=== PATIENT | male | born 1950 | race Caucasian/White ===

== ENCOUNTER 2017-11-02 16:34 | Emergency (ER) | payer MEDICARE ==
[2017-11-02 16:35] VITALS: BMI 23.7
[2017-11-02 16:39] VITALS: BP 133/90; PULSE 64; RESP 14; TEMP 97.3; O2SAT 97
[2017-11-02] MEDS ORDERED: Sodium Chloride 0.9% 1,000 ML IV STA (18:00)
[2017-11-02 18:28] LABS: BASO % 0.5 % (0.0-2.0); EOS % 0.5 % (0.0-4.0); HEMATOCRIT 42.7 % (35.0-51.0); LYMPH # 1.5 K/uL (1.0-4.3); MEAN CELL VOLUME 90.7 fl (80.0-94.0); MEAN CORPUSCULAR HGB CONC 33.1 g/dL (33.0-37.0); MEAN PLATELET VOLUME 7.7 fl (7.2-11.7); MONO # 0.5 K/uL (0.0-0.8); MONO % 7.5 % (0.0-10.0); NEUT # 5.2 K/uL (1.8-7.0); NEUT % 71.5 % (50.0-75.0); NRBC % 0.1 % (0.0-0.0); RED CELL DISTRIBUTION WIDTH 13.8 % (11.5-14.5); WHITE BLOOD COUNT 7.3 K/uL (4.8-10.8)
[2017-11-02 18:36] LABS: RBC URINE 1 /hpf (0-3); URINE BACTERIA FEW (<OCC); URINE BILIRUBIN NEGATIVE (NEGATIVE); URINE BLOOD NEGATIVE (NEGATIVE); URINE COLOR YELLOW (YELLOW); URINE GLUCOSE (UA) NEG (Normal); URINE KETONE NEGATIVE (NEGATIVE); URINE LEUKOCYTE ESTERASE NEG Leu/uL (Negative); URINE PROTEIN NEGATIVE (NEGATIVE); WBC URINE 1 /hpf (0-5)
[2017-11-02 18:37] LABS: ALB/GLOB RATIO 1.2 (1.0-2.1); ALKALINE PHOSPHATASE 62 U/L (38-126); ALT/SGPT 54 U/L (21-72); AST/SGOT 28 U/L (17-59); BILIRUBIN,TOTAL 0.5 mg/dl (0.2-1.3); BLOOD UREA NITROGEN 20 mg/dl (9-20); CALCIUM 9.8 mg/dL (8.4-10.2); CARBON DIOXIDE 31 mmol/L (22-30); CHLORIDE 102 mmol/L (98-107); GFR AFRICAN-AMERICAN > 60; GLUCOSE,RANDOM 83 mg/dL (75-110); POTASSIUM 4.5 MMOL/L (3.6-5.0); SODIUM 141 mmol/l (132-148); TOTAL PROTEIN 7.7 G/DL (6.3-8.2)
--- NOTE | 2017-11-02 19:10 | ED PDOC ---
HPI: General Adult Time Seen by Provider: 11/02/17 17:10 Chief Complaint (Nursing): Abdominal Pain History Per: Patient Additional Complaint(s): Pt. states this morning he developed RLQ abdominal pain. Reports pain is constant. States that he was seen by his PMD, Dr. Franco, who prescribed him 3 medications but he does not remember the name of the meds. He was instructed to come to ED if pain became worse. States while at home and after trying the meds pain became worse prompting ED visit. Denies fever, N/V/D, previous abdominal surgeries, chest pain, abdominal pain. Past Medical History Reviewed: Historical Data, Nursing Documentation, Vital Signs Vital Signs: Last Vital Signs Temp 97.3 F L 11/02/17 16:36 Pulse 64 11/02/17 16:36 Resp 14 11/02/17 16:36 BP 133/90 11/02/17 16:36 Pulse Ox 97 11/02/17 19:11 - Medical History PMH: HTN, Hypercholesterolemia Denies: HIV, Chronic Kidney Disease - Family History Family History: States: Unknown Family Hx - Immunization History Hx Tetanus Toxoid Vaccination: No Hx Influenza Vaccination: No Hx Pneumococcal Vaccination: No - Home Medications Home Medications: Ambulatory Orders Medication Instructions Recorded Acetaminophen [Tylenol 325mg tab] 650 mg PO Q6 PRN #0 tab 03/09/16 Amlodipine Besylate [Norvasc] 10 mg PO DAILY #0 tablet 03/09/16 - Allergies Allergies/Adverse Reactions: Allergies Allergy/AdvReac Type Severity Reaction Status Date / Time No Known Allergies Allergy Verified 11/02/17 16:36 Review of Systems ROS Statement: Except As Marked, All Systems Reviewed And Found Negative Gastrointestinal: Positive for: Abdominal Pain Physical Exam - Reviewed Nursing Documentation Reviewed: Yes Vital Signs Reviewed: Yes - Physical Exam Appears: Positive for: Well, Non-toxic, No Acute Distress Head Exam: Positive for: ATRAUMATIC, NORMAL INSPECTION, NORMOCEPHALIC Skin: Positive for: Normal Color, Warm. Negative for: Rash Eye Exam: Positive for: EOMI, Normal appearance, PERRL ENT: Positive for: Normal ENT Inspection Neck: Positive for: Normal, Painless ROM Cardiovascular/Chest: Positive for: Regular Rate, Rhythm Respiratory: Positive for: CNT, Normal Breath Sounds Gastrointestinal/Abdominal: Positive for: Normal Exam, Bowel Sounds, Soft, Tenderness (minimal RLQ tenderness), Other (negative psoas and rovsing's sign). Negative for: Rebound Back: Positive for: Normal Inspection. Negative for: L CVA Tenderness, R CVA Tenderness Extremity: Positive for: Normal ROM Neurologic/Psych: Positive for: Alert, Oriented - Laboratory Results Result Diagrams: 11/02/17 18:23 11/02/17 18:23 - ECG O2 Sat by Pulse Oximetry: 97 - Progress ED Course And Treament: Labs ordered. CT abd/pelvis w/ IV contrast ordered. Disposition - Clinical Impression Clinical Impression: Abdominal pain - Patient ED Disposition Is Patient to be Admitted: Transfer of Care (Signed out to Duane TREVINO pending CT results and final disposition.) - Disposition Disposition Time: 20:00 Condition: STABLE Forms: [facility] (Czech)
[2017-11-02] MEDS ORDERED: Iohexol 300 100 ML IJ ONE (19:22)
--- NOTE | 2017-11-02 20:17 | CT ---
EXAM: CT Abdomen and Pelvis With Intravenous Contrast CLINICAL HISTORY: 67 years old, male; Pain; Abdominal pain; Acute; Additional info: Rlq abdominal pain TECHNIQUE: Axial computed tomography images of the abdomen and pelvis with intravenous contrast. All CT scans at this facility use one or more dose reduction techniques, viz.: automated exposure control; ma/kV adjustment per patient size (including targeted exams where dose is matched to indication; i.e. head); or iterative reconstruction technique. Coronal and sagittal reformatted images were created and reviewed. CONTRAST: 95 mL of omnipaque 300 administered intravenously. COMPARISON: No relevant prior studies available. FINDINGS: Lower thorax: Borderline cardiomegaly. ABDOMEN: Liver: Fatty infiltration. Gallbladder and bile ducts: No calcified stones. No ductal dilation. Pancreas: No ductal dilation. No mass. Spleen: No splenomegaly. Adrenals: No mass. Kidneys and ureters: Calculus within RIGHT kidney. No hydronephrosis. Stomach and bowel: No definite mural thickening. No obstruction. Appendix: Normal caliber. No inflammation. PELVIS: Bladder: See below. Reproductive: Enlarged prostate gland with indentation of bladder. ABDOMEN and PELVIS: Intraperitoneal space: No significant fluid collection. No free air. Bones/joints: Bone islands. Early degenerative changes of spine. No acute fracture. Soft tissues: Unremarkable. Vasculature: Unremarkable. No aneurysm. Lymph nodes: No pathologically enlarged lymph nodes. IMPRESSION: 1. No definite CT evidence of appendicitis. 2. Prostate enlargement. Followup as clinically warranted. 3. Incidental/non-acute findings are described above.
--- NOTE | 2017-11-02 21:12 | ED PDOC ---
- Laboratory Results Result Diagrams: 11/02/17 18:23 11/02/17 18:23 - ECG O2 Sat by Pulse Oximetry: 97 - Progress ED Course And Treament: Endorsed pending CT scan. CT scan with prostate enlargement. Labs normal. Medical Decision Making Medical Decision Making: Unable to reach Dr. Franco. Disposition - Clinical Impression Clinical Impression: Abdominal pain - POA Present On Arrival: None - Disposition Disposition: Routine/Home Disposition Time: 21:12 Condition: GOOD Instructions: Acute Abdominal Pain (ED) Forms: [employer] (Syriac)
== END 2017-11-02 22:32 | disposition home or self-care (01) ==
LOC: H.ER 16:34
DX: R10.31 Right lower quadrant pain (principal); E78.00 Pure hypercholesterolemia, unspecified; I10 Essential (primary) hypertension; N40.1 Benign prostatic hyperplasia with lower urinary tract symptoms
CPT/HCPCS: 74177; 80053; 81003; 85025; 99283; J7040; Q9967

== ENCOUNTER 2018-11-26 13:54 | Emergency (ER) | payer MEDICARE ==
[2018-11-26 13:54] VITALS: BMI 23.7
[2018-11-26 14:06] VITALS: RESP 18
--- NOTE | 2018-11-26 14:30 | ED PDOC ---
HPI: CCC, URI, Sore Throat Time Seen by Provider: 11/26/18 14:13 Chief Complaint (Nursing): Cough, Cold, Congestion Chief Complaint (Provider): Cough, Cold, Congestion History Per: Patient History/Exam Limitations: no limitations Onset/Duration Of Symptoms: Days (x3) Current Symptoms Are (Timing): Still Present Additional Complaint(s): 68 year old male with pmHx of HTN, presents to ED with a complaint of cough with pleuritic pain ongoing for 3 days. He denies any fever, chills, shortness of breath, nausea, vomiting, back pain, headache, sore throat, phlegm production, or rash. PCP: Dr. Jose J Franco Past Medical History Reviewed: Historical Data, Nursing Documentation, Vital Signs Vital Signs: Last Vital Signs Temp 97 F L 11/26/18 14:05 Pulse 85 11/26/18 14:10 Resp 18 11/26/18 14:05 BP 116/82 11/26/18 14:05 Pulse Ox 98 11/26/18 14:05 - Medical History PMH: HTN, Hypercholesterolemia Denies: HIV, Chronic Kidney Disease - Family History Family History: States: Unknown Family Hx - Immunization History Hx Tetanus Toxoid Vaccination: No Hx Influenza Vaccination: No Hx Pneumococcal Vaccination: No - Home Medications Home Medications: Ambulatory Orders Medication Instructions Recorded Acetaminophen [Tylenol 325mg tab] 650 mg PO Q6 PRN #0 tab 03/09/16 Amlodipine Besylate [Norvasc] 10 mg PO DAILY #0 tablet 03/09/16 Promethazine DM [Phenergan DM 10 ml PO Q8H PRN #120 ml 11/26/18 Syrup] - Allergies Allergies/Adverse Reactions: Allergies Allergy/AdvReac Type Severity Reaction Status Date / Time No Known Allergies Allergy Verified 11/02/17 16:36 Review of Systems ROS Statement: Except As Marked, All Systems Reviewed And Found Negative Constitutional: Negative for: Fever, Chills ENT: Negative for: Throat Pain Respiratory: Positive for: Cough, Pleuritic Pain. Negative for: Shortness of Breath, Sputum Gastrointestinal: Negative for: Nausea, Vomiting Musculoskeletal: Negative for: Back Pain Skin: Negative for: Rash Neurological: Negative for: Headache Physical Exam - Reviewed Nursing Documentation Reviewed: Yes Vital Signs Reviewed: Yes - Physical Exam Appears: Positive for: No Acute Distress Head Exam: Positive for: ATRAUMATIC, NORMAL INSPECTION, NORMOCEPHALIC Skin: Positive for: Normal Color. Negative for: Rash Eye Exam: Positive for: Normal appearance ENT: Positive for: Normal ENT Inspection. Negative for: Pharyngeal Erythema, Tonsillar Swelling Neck: Positive for: Normal, Painless ROM, Supple Cardiovascular/Chest: Positive for: Regular Rate, Rhythm, Chest Non Tender Respiratory: Positive for: Normal Breath Sounds. Negative for: Wheezing, Respiratory Distress Gastrointestinal/Abdominal: Positive for: Normal Exam, Soft. Negative for: Tenderness Back: Positive for: Normal Inspection Extremity: Positive for: Normal ROM (upper/lower) Neurologic/Psych: Positive for: Alert, Oriented. Negative for: Motor/Sensory Deficits - ECG ECG: Positive for: Viewed By Ak ECG Rhythm: Positive for: Normal QRS O2 Sat by Pulse Oximetry: 98 (RA) Pulse Ox Interpretation: Normal - Radiology X-Ray: Viewed By Ak X-Ray Interpretation: No Acute Disease Medical Decision Making Medical Decision Making: Time: 1422 Initial Plan: * EKG * CXR Time: 1430 --EKG: NSR at 73 BMP. Scribe Attestation: Documented by Elizabeth Hendrickson, acting as a scribe for Zoila Baird MD. Provider Scribe Attestation: All medical record entries made by the Scribe were at my direction and personally dictated by me. I have reviewed the chart and agree that the record accurately reflects my personal performance of the history, physical exam, medical decision making, and the department course for this patient. I have also personally directed, reviewed, and agree with the discharge instructions and disposition. Disposition - Clinical Impression Clinical Impression: Chest pain - Patient ED Disposition Is Patient to be Admitted: No Doctor Will See Patient In The: Office Counseled Patient/Family Regarding: Diagnosis, Need For Followup, Rx Given - Disposition Referrals: Jose J Franco [Staff Provider] - Disposition: Routine/Home Disposition Time: 15:16 Condition: STABLE Prescriptions: Promethazine DM [Phenergan DM Syrup] 10 ml PO Q8H PRN #120 ml PRN Reason: Cough Instructions: Chest Pain That Is Not Caused by the Heart (DC) Forms: [facility] (Belarusian) - POA Present On Arrival: None
--- NOTE | 2018-11-26 16:09 | RAD ---
Date of service: 11/26/2018 HISTORY: cp with cough COMPARISON: Comparison chest dated 01/14/2017 TECHNIQUE: Chest PA and lateral FINDINGS: LUNGS: There appears to be some minor bibasilar atelectasis and or scarring changes. Mild biapical pleural thickening present left greater than right PLEURA: No significant pleural effusion identified. No pneumothorax apparent. CARDIOVASCULAR: No significant aortic atherosclerotic calcification present. Normal cardiac size. No pulmonary vascular congestion. OSSEOUS STRUCTURES: No significant abnormalities. VISUALIZED UPPER ABDOMEN: Normal. OTHER FINDINGS: None. IMPRESSION: There appears to be some minor bibasilar atelectasis and or scarring changes. Mild biapical pleural thickening present left greater than right the
[2018-11-26 16:20] VITALS: BP 114/78; PULSE 80; TEMP 98.2; O2SAT 99
--- NOTE | 2018-11-28 09:08 | CARD ---
APPROVED REPORT Date of service: 11/26/2018 EKG Measurement Heart [id number] <Conclusion> Normal sinus rhythm Normal ECG
== END 2018-11-26 16:30 | disposition home or self-care (01) ==
LOC: H.ER 13:54
DX: R07.89 Other chest pain (principal)

== ENCOUNTER 2018-12-15 08:08 | Emergency (ER) | payer MEDICARE ==
[2018-12-15 08:08] VITALS: BMI 23.7
[2018-12-15 08:12] VITALS: TEMP 97.5
--- NOTE | 2018-12-15 09:18 | ED PDOC ---
HPI: Back Time Seen by Provider: 12/15/18 08:23 Chief Complaint (Nursing): Back Pain Chief Complaint (Provider): right flank pain History Per: Patient History/Exam Limitations: no limitations Onset/Duration Of Symptoms: Hrs (04:00) Current Symptoms Are (Timing): Still Present Additional Complaint(s): Mary Edward is a 68 year old male, with a past medical history of HTN and psoriasis, who presents to the emergency department complaining of a constant severe right flank pain since 04:00. Patient states pain is not improving and does not radiate. 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 He denies any fever, chills, chest pain, shortness of breath, back pain, urinary symptoms or recent injuries. No further medical complaints. PMD: Jose J Franco Past Medical History Reviewed: Historical Data, Nursing Documentation, Vital Signs Vital Signs: Last Vital Signs Temp 97.5 F L 12/15/18 08:11 Pulse 65 12/15/18 08:11 Resp 18 12/15/18 08:11 BP 125/81 12/15/18 08:11 Pulse Ox 99 12/15/18 08:11 - Medical History PMH: HTN, Hypercholesterolemia Denies: HIV, Chronic Kidney Disease Other PMH: psoriasis - Surgical History Surgical History: No Surg Hx - Family History Family History: States: Unknown Family Hx - Social History Current smoker - smoking cessation education provided: No Alcohol: None Drugs: Denies - Immunization History Hx Tetanus Toxoid Vaccination: No Hx Influenza Vaccination: No Hx Pneumococcal Vaccination: No - Home Medications Home Medications: Ambulatory Orders Medication Instructions Recorded Ciprofloxacin HCl [Cipro] 500 mg PO BID #14 tablet 12/15/18 Ketorolac Tromethamine [Toradol] 10 mg PO Q6 PRN #20 tab 12/15/18 amLODIPine [Norvasc] 10 mg PO DAILY 12/15/18 - Allergies Allergies/Adverse Reactions: Allergies Allergy/AdvReac Type Severity Reaction Status Date / Time No Known Allergies Allergy Verified 11/02/17 16:36 Review of Systems ROS Statement: Except As Marked, All Systems Reviewed And Found Negative Constitutional: Negative for: Fever, Chills Cardiovascular: Negative for: Chest Pain Respiratory: Negative for: Shortness of Breath Genitourinary Male: Negative for: Dysuria, Frequency, Incontinence, Hematuria Musculoskeletal: Positive for: Other (right flank pain). Negative for: Back Pain Physical Exam - Reviewed Nursing Documentation Reviewed: Yes Vital Signs Reviewed: Yes - Physical Exam Appears: Positive for: Uncomfortable (restless) Head Exam: Positive for: ATRAUMATIC, NORMAL INSPECTION, NORMOCEPHALIC Skin: Positive for: Normal Color, Warm, Dry Eye Exam: Positive for: Normal appearance, EOMI, PERRL Neck: Positive for: Normal, Painless ROM, Supple Cardiovascular/Chest: Positive for: Regular Rate, Rhythm, Other (psoriatic lesions on trunk). Negative for: Murmur Respiratory: Positive for: Normal Breath Sounds. Negative for: Respiratory Distress Gastrointestinal/Abdominal: Positive for: Normal Exam, Soft. Negative for: Tenderness Back: Positive for: Other (Right mid back tenderness on palpation). Negative for: L CVA Tenderness, R CVA Tenderness, Vertebral Tenderness Extremity: Positive for: Normal ROM (upper and lower extremities). Negative for: Deformity, Swelling Neurologic/Psych: Positive for: Alert, Oriented. Negative for: Motor/Sensory Deficits - Laboratory Results Result Diagrams: 12/15/18 08:57 12/15/18 08:57 - ECG O2 Sat by Pulse Oximetry: 99 (RA) Pulse Ox Interpretation: Normal - Progress Re-evaluation Time: 13:29 Condition: Re-examined, Improved Medical Decision Making Medical Decision Making: Time: 08:23 Initial Impression: Right sided flank pain. Differential diagnosis includes musculoskeletal pain and renal colic Initial Plan: --Abdomen & Pelvis w/o PO or IV cont [CT] --BMP --Drug screen, urine --CBC w/ differential --Toradol 30 mg IVP --Urinalysis --Reevaluation 09:59 Abdomen/Pelvis CT FINDINGS: LOWER THORAX: Unremarkable. LIVER: Unremarkable. No gross lesion or ductal dilatation. GALLBLADDER AND BILE DUCTS: Unremarkable. PANCREAS: Unremarkable. No gross lesion or ductal dilatation. SPLEEN: Unremarkable. ADRENALS: Unremarkable. No mass. KIDNEYS AND URETERS: Obstructive 6 mm proximal right ureteral calculus causing mild hydroureteronephrosis. Punctate left upper pole nonobstructive calculus.. No solid mass. VASCULATURE: Unremarkable. No aortic aneurysm. No aortic atherosclerotic calcification or mural plaque present. BOWEL: Unremarkable. No obstruction. No gross mural thickening. APPENDIX: No findings to suggest acute appendicitis. PERITONEUM: Unremarkable. No free fluid. No free air. LYMPH NODES: Unremarkable. No enlarged lymph nodes. BLADDER: Unremarkable. REPRODUCTIVE: Enlarged, lobulated prostate and seminal vesicles BONES: Spinal degenerative changes. Few scattered sclerotic foci in the pelvis, unchanged. No acute fracture. OTHER FINDINGS: None. IMPRESSION: Obstructive 6 mm proximal right ureteral calculus causing mild hydroureteronephrosis. Punctate left upper pole nonobstructive calculus. Enlarged, lobular prostate and seminal vesicles. Further evaluation is recommended, including serum PSA levels. Additional findings as above. Scribe Attestation: Documented by Masood Ogden, acting as a scribe for Ramakrishna Berumen MD Provider Scribe Attestation: All medical record entries made by the Scribe were at my direction and personally dictated by me. I have reviewed the chart and agree that the record accurately reflects my personal performance of the history, physical exam, medical decision making, and the department course for this patient. I have also personally directed, reviewed, and agree with the discharge instructions and disposition. Disposition - Clinical Impression Clinical Impression: Right ureteral stone, Prostate enlargement - Patient ED Disposition Is Patient to be Admitted: No Doctor Will See Patient In The: Office Counseled Patient/Family Regarding: Studies Performed, Diagnosis, Need For Followup - Disposition Referrals: Jose J Franco [Family Provider] - Puma Skinner Jr., MD [Staff Provider] - Disposition Time: 13:29 Condition: GOOD Additional Instructions: MARY EDWARD, thank you for letting us take care of you today. Your provider was Ramakrishna Berumen MD and you were treated for BACK PAIN. The emergency medical care you received today was directed at your acute symptoms. If you were prescribed any medication, please fill it and take as directed. It may take several days for your symptoms to resolve. Return to the Emergency Department if your symptoms worsen, do not improve, or if you have any other problems. Please contact your doctor or call one of the physicians/clinics you have been referred to that are listed on the Patient Visit Information form that is included in your discharge packet. Bring any paperwork you were given at d ischarge with you along with any medications you are taking to your follow up visit. Our treatment cannot replace ongoing medical care by a primary care provider outside of the emergency department. Thank you for allowing the [facility] team to be part of your care today. If you had an X-Ray or CT scan: A Radiologist will review the ED reading if any change in treatment is needed we will contact you. If you had a blood, urine, or wound culture: It will take several days for the results, if any change in treatment is needed we will contact you. If you had an STI test: It will take 48 hours for the results. Please call after 1 week if you have not heard back. Prescriptions: Ciprofloxacin HCl [Cipro] 500 mg PO BID #14 tablet Ketorolac Tromethamine [Toradol] 10 mg PO Q6 PRN #20 tab PRN Reason: Pain, Moderate (4-7) Instructions: Benign Prostatic Hyperplasia (Enlarged Prostate), Kidney Stones in Adults Forms: [facility] (Upper Sorbian) Print Language: CROATIAN
[2018-12-15 09:20] LABS: BASO % 0.3 % (0.0-2.0); EOS % 0.2 % (0.0-4.0); HEMOGLOBIN 14.3 g/dL (12.0-18.0); LYMPH # 0.9 K/uL (1.0-4.3); LYMPH % 10.6 % (20.0-40.0); MEAN CELL VOLUME 90.1 fl (80.0-94.0); MEAN CORPUSCULAR HEMOGLOBIN 30.4 pg (27.0-31.0); MEAN CORPUSCULAR HGB CONC 33.7 g/dL (33.0-37.0); MEAN PLATELET VOLUME 8.2 fl (7.2-11.7); MONO # 0.4 K/uL (0.0-0.8); MONO % 4.7 % (0.0-10.0); NEUT # 7.2 K/uL (1.8-7.0); NEUT % 84.2 % (50.0-75.0); RBC 4.72 Mil/uL (4.40-5.90); RED CELL DISTRIBUTION WIDTH 13.7 % (11.5-14.5); WHITE BLOOD COUNT 8.6 K/uL (4.8-10.8)
[2018-12-15 09:54] LABS: BLOOD UREA NITROGEN 13 mg/dl (9-20); CALCIUM 9.7 mg/dL (8.4-10.2); GFR NON-AFRICAN AMERICAN > 60
--- NOTE | 2018-12-15 10:19 | CT ---
Date of service: 12/15/2018 PROCEDURE: CT Abdomen and Pelvis without intravenous contrast HISTORY: right flank pain COMPARISON: CT scan of the abdomen pelvis dated 11/02/2017. TECHNIQUE: Contiguous images were obtained from the domes of the diaphragms to the upper thighs without the administration of intravenous contrast. Oral contrast was not administered. Radiation dose: Total exam DLP = 385.99 mGy-cm. This CT exam was performed using one or more of the following dose reduction techniques: Automated exposure control, adjustment of the mA and/or kV according to patient size, and/or use of iterative reconstruction technique. FINDINGS: LOWER THORAX: Unremarkable. LIVER: Unremarkable. No gross lesion or ductal dilatation. GALLBLADDER AND BILE DUCTS: Unremarkable. PANCREAS: Unremarkable. No gross lesion or ductal dilatation. SPLEEN: Unremarkable. ADRENALS: Unremarkable. No mass. KIDNEYS AND URETERS: Obstructive 6 mm proximal right ureteral calculus causing mild hydroureteronephrosis. Punctate left upper pole nonobstructive calculus.. No solid mass. VASCULATURE: Unremarkable. No aortic aneurysm. No aortic atherosclerotic calcification or mural plaque present. BOWEL: Unremarkable. No obstruction. No gross mural thickening. APPENDIX: No findings to suggest acute appendicitis. PERITONEUM: Unremarkable. No free fluid. No free air. LYMPH NODES: Unremarkable. No enlarged lymph nodes. BLADDER: Unremarkable. REPRODUCTIVE: Enlarged, lobulated prostate and seminal vesicles BONES: Spinal degenerative changes. Few scattered sclerotic foci in the pelvis, unchanged. No acute fracture. OTHER FINDINGS: None. IMPRESSION: Obstructive 6 mm proximal right ureteral calculus causing mild hydroureteronephrosis. Punctate left upper pole nonobstructive calculus. Enlarged, lobular prostate and seminal vesicles. Further evaluation is recommended, including serum PSA levels. Additional findings as above.
[2018-12-15 10:51] LABS: URINE BACTERIA OCC (<OCC)
[2018-12-15 11:00] LABS: URINE BILIRUBIN NEGATIVE (NEGATIVE); URINE BLOOD LARGE (NEGATIVE); URINE CLARITY Hazy (Clear); URINE COLOR YELLOW (YELLOW); URINE GLUCOSE (UA) NEGATIVE (NEGATIVE)
[2018-12-15 11:01] LABS: PH,URINE 8.5 (5.0-8.0); URINE LEUKOCYTE ESTERASE NEGATIVE Leu/uL (Negative); URINE PROTEIN 30 mg/dL (NEGATIVE)
[2018-12-15 11:03] LABS: BARBITURATES, UR NEGATIVE (NEGATIVE); BENZODIAZEPINES, UR NEGATIVE (NEGATIVE); OPIATES, UR NEGATIVE (NEGATIVE); PHENCYCLIDINE, UR NEGATIVE (NEGATIVE)
[2018-12-15 12:04] VITALS: BP 117/73; PULSE 67; RESP 19
[2018-12-15 13:33] VITALS: O2SAT 99
== END 2018-12-15 13:51 | disposition home or self-care (01) ==
LOC: H.ER 08:08
DX: N20.1 Calculus of ureter (principal); N40.0 Benign prostatic hyperplasia without lower urinary tract symptoms; I10 Essential (primary) hypertension; E78.00 Pure hypercholesterolemia, unspecified
CPT/HCPCS: 74176; 80048; 81003; 85025; 96374; 99284; G0480; J1885